=== PATIENT | male | born 1955 | race Caucasian/White ===

== ENCOUNTER → 2021-09-22 | Outpatient (CLI) | payer MEDICARE | END | disposition home or self-care (01) | LOC: LABWHC1 14:46 | PROVIDERS: ATTEND Orthopaedic Surgery | DX: M16.12 Unilateral primary osteoarthritis, left hip (principal); M25.551 Pain in right hip; Z96.641 Presence of right artificial hip joint | CPT/HCPCS: 36415; 85379; 85652; 86140 ==

== ENCOUNTER → 2021-10-21 | Outpatient (CLI) | payer MEDICARE ==
[2021-10-21 11:53] LABS: INR 0.9 (<1.2); Partial Thromboplastin Time 28.2 sec (22.0-30.0); Prothrombin Time 10.1 sec (9.0-12.0)
[2021-10-21 14:39] LABS: HGB 12.8 g/dL (13.0-17.0); MCH 27.9 pg (27.0-32.0); MCV 87.1 fL (80.0-97.0); Mean Platelet Volume 10.5 fL (9.5-12.2); NRBC Per 100 WBC 0 /100 WBCS (0.0-0.0); Platelet Count 213 X 10*3/uL (140-440); RBC 4.59 X 10*6/uL (4.40-5.60); RDW 13.6 % (11.5-14.5); WBC 8.29 X 10*3/uL (4.50-10.00)
[2021-10-21 15:01] LABS: African American GFR (CKD) 113.3 (60.0-200.0); Albumin/Globulin Ratio 1.69 (1.60-3.17); Anion Gap 9.7 mmol/L (10.00-18.00); BUN/Creat Ratio 23.77 Ratio (12.00-20.00); Blood Urea Nitrogen 16.9 mg/dL (9.0-27.0); Calcium 9.2 mg/dL (8.7-10.3); Carbon Dioxide 25.2 mmol/L (20.0-27.5); Globulin 2.3 g/dL (1.6-3.3); Non-African American GFR(CKD) 97.7 (60.0-200.0); Potassium 4.8 mmol/L (3.5-5.5); Total Bilirubin 0.3 mg/dL (0.30-1.20); Total Protein 6.3 g/dL (6.2-8.2)
[2021-10-21 16:19] LABS: Appearance,Urine Clear (Clear); Bilirubin,Urine Negative (Negative); Blood,Urine Negative (Negative); Color,Urine Yellow (Yellow); Ketones,Urine Negative (Negative); Nitrite,Urine Negative (Negative); PH, Urine 5.5 (5.0-8.0); Specific Gravity,Urine 1.015 (1.001-1.030); Urobilinogen,Urine 0.2 (0.2,1.0)
== END | disposition home or self-care (01) ==
LOC: LABPAT 10:24
PROVIDERS: ATTEND Orthopaedic Surgery
DX: Z01.818 Encounter for other preprocedural examination (principal); M16.12 Unilateral primary osteoarthritis, left hip
CPT/HCPCS: 80053; 81003; 85027; 85610; 85730; 87070; 93005

== ENCOUNTER → 2022-11-12 | Outpatient (CLI) | payer MEDICARE | END | disposition home or self-care (01) | LOC: LABWHC1 11:59 | PROVIDERS: ATTEND Orthopaedic Surgery | DX: M25.551 Pain in right hip (principal); Z96.641 Presence of right artificial hip joint; T84.84XD Pain due to internal orthopedic prosthetic devices, implants and grafts, subsequent encounter; Z47.1 Aftercare following joint replacement surgery; Y82.9 Unspecified medical devices associated with adverse incidents | CPT/HCPCS: 36415; 85379; 85652; 86140 ==

== ENCOUNTER → 2024-07-05 | Outpatient (CLI) | payer MEDICARE | END | disposition home or self-care (01) | LOC: LABWHC1 09:32 | PROVIDERS: ATTEND Orthopaedic Surgery | DX: T84.84XA Pain due to internal orthopedic prosthetic devices, implants and grafts, initial encounter (principal); Z96.642 Presence of left artificial hip joint; Z47.1 Aftercare following joint replacement surgery | CPT/HCPCS: 36415; 85652; 86140 ==